=== PATIENT | female | born 1975 | race Caucasian/White ===

== ENCOUNTER 2017-08-27 16:12 | Emergency (ER) | payer MEDICAID, OTHER ==
[~2017-08-27] VITALS: Ht 165.1 cm; Wt 45.4 kg
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
--- OUTSIDE RECORDS SUMMARY | 2017-08-27 16:18 | XMS REPORT | Summary of Care ---
Author Author Rosie Sewell APRN Organization Unknown Address [address] [place], [place] [id number] Phone Unavailable Care Team Providers Care Special Education Inclusion Teacher Name Role Phone Outside, Physician PP Unavailable [facility], Dipika VILLAGOMEZ Unavailable Unavailable Unavailable Functional Status Functional Status Health Issues* Name Dates Details Functional status health issues are not documented Status: Cognitive Status Health Issues* Name Dates Details Cognitive status health issues are not documented Status: Problems Name Dates Details Encounter related to worker's compensation claim (V70.3, Z02.6) Status: Active Back strain (847.9, S39.012A) Status: Active Impacted cerumen of left ear (380.4, H61.22) Status: Active Medications Name Dates Details Multi-Vitamin Oral Tablet * Started 29-Aug-2012 Active Allergies and Adverse Reactions Name Dates Details No Known Drug Allergies Status: Active Past Medical History Name Dates Details History of Encounter for employment-related drug testing (V70.5, Z02.89) Status: Resolved History of low back pain (V13.59, Z87.39) Status: Resolved Procedures Procedure Dates Details Procedures not documented Immunization Name Dates Details Immunizations not documented Social History Smoking Status* Unknown if ever smoked Vital Signs Date Test Result Details 18-May-2015 14:46 Temperature 98.4 f Status: Results Date Description Value Details Results not documented Plan of Care Planned Observations* Name Dates Details Planned Goals not documented Goal Instructions * Instructions not documented Encounters Appointment; Rosie Sewell Encounter Diagnosis: Problem not documented On 18-May-2015 14:15 Appointment; Danny Gauthier Encounter Diagnosis: Problem not documented On 16-Mar-2014 15:30 Appointment; Danny Gauthier Encounter Diagnosis: Problem not documented On 09:15 Appointment; Danny Gauthier Encounter Diagnosis: Problem not documented On 10-Dec-2013 11:00 Appointment; Danny Gauthier Encounter Diagnosis: Problem not documented On 23-Nov-2013 15:15
--- OUTSIDE RECORDS SUMMARY | 2017-08-27 16:18 | XMS REPORT ---
Author Author GENERATED, SYSTEM Organization Unknown Address Unknown Phone Unavailable Care Team Providers Care Evp Global Product Leadership Name Role Phone UNASSIGNED DOCTOR , DOCTOR PP Reason For Visit Chief Complaint CHEST PAINS, SOB Social History Functional Status Vital Signs Results Chemistry from 01/03/2015 11:33 PMSODIUM 138 MMOL/L (136-145 MMOL/L) POTASSIUM 3.9 MMOL/L (3.5-5.1 MMOL/L) CHLORIDE 101 MMOL/L (98-107 MMOL/L) TCO2 29.5 MMOL/L (21.0-32.0 MMOL/L) ANION GAP 7.5 MMOL/L L (8.0-16.0 MMOL/L) BUN 10 MG/DL (7-18 MG/DL) CREATININE 0.67 MG/DL (0.43-0.83 MG/DL) BUN/CREATININE RATIO 14.9 (9.1-17.0 ) GLUCOSE 99 MG/DL (65-99 MG/DL) GFR EST NON AFR LITHUANIAN >90 ML/MIN GFRA EST AFR AMER >90 ML/MIN CALCIUM 9.8 MG/DL (8.5-10.1 MG/DL) TROPONIN-I <0.04 (SEE BELOW ) Hematology from 01/03/2015 11:33 PMWBC 8.2 X10e3/UL (3.6-11.2 X10e3/UL) RBC 4.33 X10e6/UL (3.63-4.92 X10e6/UL) HEMOGLOBIN 14.3 G/DL (11.0-14.3 G/DL) HEMATOCRIT 41.7 % (31.2-41.9 %) MCV 96.3 FL (79.0-98.0 FL) MCH 33.0 PG (27.0-33.0 PG) MCHC 34.3 G/DL (32.0-36.0 G/DL) RDW 12.5 % (12.3-17.0 %) RDWSD 41.6 (37.1-47.8 ) PLATELET 203 X10e3/UL (159-386 X10e3/UL) MPV 8.1 FL (7.4-10.4 FL) AUTOMATED DIFF PERFORMED SEGS 62.3 % LYMPHOCYTES 26.9 % MONOCYTES 5.8 % EOSINOPHILS 4.5 % BASOPHILS 0.5 % ABSOLUTE NEUTROPHILS 5.10 X10e3/UL (1.80-7.80 X10e3/UL) ABSOLUTE LYMPHOCYTES 2.20 X10e3/UL (1.00-3.00 X10e3/UL) ABSOLUTE MONOCYTES 0.50 X10e3/UL (0.30-1.00 X10e3/UL) ABSOLUTE EOSINOPHILS 0.40 X10e3/UL (0.00-0.50 X10e3/UL) ABSOLUTE BASOPHILS 0.00 X10e3/UL (0.00-0.20 X10e3/UL) Coagulation from 01/03/2015 11:33 PMD-DIMER 0.70 MG/L FEU H (0.00-0.50 MG/L FEU) DX Radiology from 01/03/2015 11:25 PMCHEST 1 VIEW DATE OF EXAM: Jan 04 2015 12: 02AM Proc: DG 0066 - CHEST 1 VIEW CPT Code(s): 61062-; ; ; INDICATION / CLINICAL HISTORY: \E\Chest Pain FINDINGS: A single view of the chest was obtained. The heart size and pulmonary vasculature appear within normal limits. There is no evidence of pneumothorax, pleural effusion, or acute infiltrate. The osseous structures appear intact. IMPRESSION: Unremarkable chest radiograph. Problems Encounter Diagnosis No relevant problems exist. Encounters Encounter Diagnosis No relevant problems exist. Plan of Care Procedures No relevant procedures performed. Immunizations No immunizations administered or ordered. Hospital Course Hospital Discharge Instructions Allergies, Adverse Reactions, Alerts * Latex Allergy has not been assessed. * IV Contrast Allergy has not been assessed. Medication Medication reconciliation has not been performed.
--- OUTSIDE RECORDS SUMMARY | 2017-08-27 16:18 | XMS REPORT ---
Author Author GENERATED, SYSTEM Organization Unknown Address Unknown Phone Unavailable Care Team Providers Care Media Specialist Name Role Phone UNASSIGNED DOCTOR , DOCTOR PP Reason For Visit Chief Complaint SYNCOPE/ FAINTING Social History Functional Status Vital Signs Results Problems Encounter Diagnosis No relevant problems exist. [...]
--- OUTSIDE RECORDS SUMMARY | 2017-08-27 16:18 | XMS REPORT ---
Author Author GENERATED, SYSTEM Organization Unknown Address Unknown Phone Unavailable Care Team Providers Care Pick Remover Name Role Phone UNASSIGNED DOCTOR , DOCTOR PP Reason For Visit Chief Complaint LIGHTHEADED Social History Functional Status Vital Signs Results Chemistry from 05/14/2015 6:00 PMSODIUM 142 MMOL/L (136-145 MMOL/L) POTASSIUM 4.0 MMOL/L (3.5-5.1 MMOL/L) CHLORIDE 106 MMOL/L (98-107 MMOL/L) TCO2 25.0 MMOL/L (21.0-32.0 MMOL/L) *ANION GAP 11.0 MMOL/L (8.0-16.0 MMOL/L) BUN 14 MG/DL (7-18 MG/DL) CREATININE 1.06 MG/DL H (0.55-1.02 MG/DL) *BUN/CREATININE RATIO 13.2 (9.1-17.0 ) GLUCOSE 96 MG/DL (65-99 MG/DL) *GFR EST NON AFR EMIRATI 66 ML/MIN *GFRA EST AFR AMER 76 ML/MIN CALCIUM 8.8 MG/DL (8.5-10.1 MG/DL) BILIRUBIN TOTAL 0.56 MG/DL (0.20-1.00 MG/DL) TOTAL PROTEIN 7.2 GM/DL (6.4-8.2 GM/DL) ALBUMIN 4.2 GM/DL (3.4-5.0 GM/DL) *GLOBULIN 3.0 GM/DL (2.3-3.5 GM/DL) *A/G RATIO 1.4 MG/DL L (1.5-2.2 MG/DL) ALK PHOS 62 U/L (46-116 U/L) ALT (SGPT) 19 U/L (16-63 U/L) AST (SGOT) 18 U/L (15-37 U/L) TSH 1.30 UIU/ML (0.34-4.82 UIU/ML) Hematology from 05/14/2015 6:00 PMWBC 9.4 X10e3/UL (3.6-11.2 X10e3/UL) RBC 4.37 X10e6/UL (3.63-4.92 X10e6/UL) HEMOGLOBIN 14.0 G/DL (11.0-14.3 G/DL) HEMATOCRIT 41.8 % (31.2-41.9 %) MCV 95.8 FL (79.0-98.0 FL) MCH 32.2 PG (27.0-33.0 PG) MCHC 33.6 G/DL (32.0-36.0 G/DL) RDW 12.2 % L (12.3-17.0 %) RDWSD 40.7 (37.1-47.8 ) PLATELET 227 X10e3/UL (159-386 X10e3/UL) MPV 8.2 FL (7.4-10.4 FL) AUTOMATED DIFF PERFORMED SEGS 79.4 % LYMPHOCYTES 12.3 % MONOCYTES 6.1 % EOSINOPHILS 1.9 % BASOPHILS 0.3 % ABSOLUTE NEUTROPHILS 7.50 X10e3/UL (1.80-7.80 X10e3/UL) ABSOLUTE LYMPHOCYTES 1.20 X10e3/UL (1.00-3.00 X10e3/UL) ABSOLUTE MONOCYTES 0.60 X10e3/UL (0.30-1.00 X10e3/UL) ABSOLUTE EOSINOPHILS 0.20 X10e3/UL (0.00-0.50 X10e3/UL) ABSOLUTE BASOPHILS 0.00 X10e3/UL (0.00-0.20 X10e3/UL) Urinalysis from 05/14/2015 6:35 PM*URINE COLOR YELLOW (STRAW/YELL/DK YELL ) *URINE APPEARANCE CLEAR (CLEAR ) URINE PH 7.0 (5.0-8.0 ) URINE SPECIFIC GRAVITY 1.015 (<=1.005->=1.030 ) *URINE GLUCOSE (LAB) NEGATIVE MG/DL (NEGATIVE MG/DL) *URINE BILIRUBIN NEGATIVE (NEGATIVE ) *URINE KETONES TRACE MG/DL A (NEGATIVE MG/DL) *URINE BLOOD NEGATIVE (NEGATIVE ) *URINE PROTEIN NEGATIVE MG/DL (NEGATIVE MG/DL) *URINE UROBILINOGEN 0.2 EU/DL (0.2-1.0 EU/DL) *URINE NITRITES (LAB) NEGATIVE (NEGATIVE ) *URINE LEUKOCYTES NEGATIVE (NEGATIVE ) UR NEGATIVE (NEGATIVE ) Coagulation from 05/14/2015 6:00 PM*PROTHROMBIN TIME 10.6 SECONDS (9.4-11.5 SECONDS) *INR 1.0 (0.9-1.1 ) PARTIAL THROMBOPLASTIN TIME 23.5 SECONDS (23.0-31.0 SECONDS) CT Scan from 05/14/2015 7:24 PMCT CEREBRAL W/O CONTRAST History: Dizziness . Priors: None. Findings: Ventricles and Extra axial spaces: Normal in size and morphology for the patient's age. Hemorrhage: None. Cerebral parenchyma: Normal. No acute infarcts are identified. Mass effect/midline shift: None. Brainstem/Cerebellum: Normal. Calvarium: There postsurgical change of a left temporal craniectomy of with small associated area of encephalomalacia in the left temporal lobe laterally. Visualized Paranasal sinuses/Mastoids: Clear. Impression: No evidence acute intracranial process. Postsurgical changes described above. Electronically signed by: Tyrone Gan MD Dictated: 05/15/2015 10:11 Problems Encounter Diagnosis No relevant problems exist. [...]
--- OUTSIDE RECORDS SUMMARY | 2017-08-27 16:18 | XMS REPORT | Summary of Care ---
Author Author Trevon Almeida M.D. Organization Unknown Address [address] [place], [place] [address] Phone Unavailable Care Team Providers Care Boat Fueler Name Role Phone Trevon Almeida M.D. 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 Quantity: 30 ThodeJordy M.D.* Started 19-Aug-2015 ActiveEszopiclone 3 MG Oral Tablet TAKE 1 TABLET AT BEDTIME NEEDED FOR SLEEP. * Quantity: 15 Refills: 0 ThodeJordy M.D.* Started 02-Sep-2015 Active Allergies and Adverse Reactions Name Dates Details No Known Drug Allergies Status: Active Past Medical History Name Dates Details Depression (311, F32.9) Status: Active History of Ankle fracture, right (824.8, S82.891A) [...] Immunization Name Dates Details Immunizations not documented Family History Mother* Name Dates Details Family history of cerebral aneurysm (V17.1, Z82.49) Status: Active Father* Name Dates Details Family history of Known health problems: none (V49.89, Z78.9) Status: Active Social History Smoking Status* Unknown if ever smoked Vital Signs Date Test Result Details 02-Sep-2015 15:21 BP Systolic 104 mm[Hg] Status: BP Diastolic 67 mm[Hg] Status: Temperature 98.1 f Status: Heart Rate 103 /min Status: O2 SAT 97 % Status: 19-Aug-2015 13:05 BP Systolic 108 mm[Hg] Status: BP Diastolic 62 mm[Hg] Status: Temperature 97.9 f Status: Heart Rate 92 /min Status: O2 SAT 98 % Status: Results Date Description Value Details Results not documented Plan of Care Planned Observations* Name Dates Details Planned Goals not documented Goal Instructions * Instructions not documented Encounters Appointment; Jordy Almeida Encounter Diagnosis: Problem not documented On 02-Sep-2015 15:00 Appointment; Andrew Schwartz Encounter Diagnosis: Problem not documented On 01-Sep-2015 08:15 Appointment; Jordy Almeida Encounter Diagnosis: Problem not documented On 19-Aug-2015 13:00 Appointment; Rosie Sewell Encounter Diagnosis: Problem not documented On 07-Jun-2015 15:20 Appointment; Rosie Sewell Encounter Diagnosis: Problem not documented On 18-May-2015 14:15 Appointment; Danny Gauthier Encounter Diagnosis: Problem not documented On 16-Mar-2014 15:30 Appointment; Danny Gauthier Encounter Diagnosis: Problem not documented On 09:15 Appointment; Danny Gauthier Encounter Diagnosis: Problem not documented On 10-Dec-2013 11:00 Appointment; Danny Gauthier Encounter Diagnosis: Problem not documented On 23-Nov-2013 15:15
--- OUTSIDE RECORDS SUMMARY | 2017-08-27 16:18 | XMS REPORT | Summary of Care ---
Author Author Anthony Esposito D.O. Organization Unknown Address [address], [place] [address] Phone Unavailable Care Team Providers Care Estate And Trust Tax Principal Name Role Phone Anthony Esposito D.O. Unavailable Unavailable Wes Esposito PP Unavailable [facility] Dipika Castro RP [...] for screening mammogram (V76.12, Z12.31) Status: Active Depression (311, F32.9) Status: Active Insomnia (780.52, G47.00) Status: Active Medications Name Dates Details PARoxetine HCl - 20 MG Oral Tablet ONE TABLET BY MOUTH DAILY Quantity: 90 Anthony Esposito D.O.* Started 19-Aug-2015 ActiveEszopiclone 3 MG Oral Tablet TAKE 1 TABLET AT BEDTIME NEEDED FOR SLEEP. * Quantity: 30 Refills: 2 Anthony Esposito D.O.* Started 02-Sep-2015 ActiveBenadryl 25 MG Oral Tablet TAKE 6 TABLET Bedtime * Refills: 0 Anthony Esposito D.O.* Started 16-Sep-2015 Active Allergies and Adverse Reactions Name Dates [...] History of Elevation Of Depressed Skull Fracture Blood Type 2126 (ABO and Rh) Ordered:16-Sep-2015 Immunization Name Dates Details Immunizations not documented Family History Mother* Name Dates Details Family history of cerebral aneurysm (V17.1, Z82.49) Status: Active Father* Name Dates Details Family history of Known health problems: none (V49.89, Z78.9) Status: Active Social History Name Dates Details Smoking Status* Never smoker Vital Signs Date Test Result Details 12-Oct-2015 14:46 BP Systolic 118 mm[Hg] Status: BP Diastolic 64 mm[Hg] Status: Heart Rate 68 /min Status: Weight 116 lb Status: Body Mass Index Calculated 19.91 kg/m2 Status: Body Surface Area Calculated 1.55 m2 Status: 16-Sep-2015 14:57 BP Systolic 104 mm[Hg] Status: BP Diastolic 60 mm[Hg] Status: Heart Rate 80 /min Status: Height 64 in Status: Weight 118.125 lb Status: Body Mass Index Calculated 20.28 kg/m2 Status: Body Surface Area Calculated 1.56 m2 Status: Results Date Description Value Details 23-Sep-2015 12:59 MAMMOGRAM- IMPLANTS Comments: Exam Date: 09/23/2015 11 :21Dictation Date: 09/23/2015 12:59 X[facility] IMPLANTS [facility]ULT[facility] Radiologic ReportGUNNAR [id number]-[id number] (X-RAY)PATIENT OF DR. ESPOSITO BD: 1975 SECONDARY XM DIGITAL IMPLANTS XM DIGITAL CAD (SCREENING) INDICATION: Z12.31: (Better) 12-Oct-2015 13:35 Comprehensive Metabolic Panel 1212 Comments: Fastin hours SODIUM 139 mmol/L (Better) Range: 133-144 POTASSIUM 4.2 mmol/L (Better) Range: 3.5-5.1 CHLORIDE 102 mmol/L (Better) Range: 98-110 CARBON DIOXIDE 30.9 mmol/L (Better) Range: 23.0-33.0 ANION GAP 6 mmol/L (Better) Range: 6-16 BUN 14 mg/dL (Better) Range: 7-18 CREATININE, SERUM 0.93 mg/dL (Better) Range: 0.55-1.02 Comments: Please note new reference ranges effective 2015.----- BUN:CREATININE RATIO 15 (Better) EST GFR, >60 ml/min (Better) Range: >60 EST GFR, NON-AFR LATVIAN >60 ml/min (Better) Range: >60 Comments: EST GFR is reported in ml/min per 1.73 m2 of body surface area. For -[place], please multiple result by 1.2.----- GLUCOSE 89 mg/dL (Better) Range: 70-100 ALK PHOSPHATASE 62 U/L (Better) Range: 46-116 TOTAL BILIRUBIN 0.20 mg/dL (Better) Range: 0.20-1.00 AST 18 U/L (Better) Range: 8-35 ALT 21 U/L (Better) Range: 14-59 Comments: Please note new reference ranges. Effective 10/21/2014.----- ALBUMIN 4.1 g/dL (Better) Range: 3.4-5.0 TOTAL PROTEIN 7.4 g/dL (Better) Range: 6.4-8.2 A/G RATIO 1.2 units (Better) Range: 1.0-1.8 CALCIUM 8.6 mg/dL (Better) Range: 8.5-10.1 13:35 LIPID PROFILE 1184 Comments: Fastin hours CHOLESTEROL 198 mg/dL (Better) Range: <200 TRIGLYCERIDES 85 mg/dL (Better) Range: 30-200 HDL Cholesterol 53 mg/dL (Better) Range: >39 NON HDL CHOLESTEROL 145 (Better) CARDIAC RSK FACTOR 3.7 units (Below low threshold) Range: 4.4-5.0 LDL - CALCULATED 128 mg/dL (Better) Range: 0-130 Plan of Care Planned Observations* Name Dates Details Planned Goals not documented Goal Planned Encounters* Appointment; Provider: Schedule Radiology On 23-Sep-2015 11:30 Instructions * Instructions not documented Encounters Appointment; Anthony Esposito Encounter Diagnosis: Problem not documented On 12-Oct-2015 14:45 Appointment; Anthony Esposito Encounter Diagnosis: Problem not documented On 16-Sep-2015 14:30 Appointment; Jordy Almeida Encounter Diagnosis: Problem not [...]
--- OUTSIDE RECORDS SUMMARY | 2017-08-27 16:18 | XMS REPORT | Summary of Care ---
Author Author Trevon Almeida M.D. Organization Unknown Address [address], [place] [id number] Phone Unavailable Care Team Providers Care Distillation Operator Helper Name Role Phone Trevon Almeida M.D. Unavailable Unavailable No Assigned PCP-Pt Confirmed PP Unavailable [facility], Dipika RP Unavailable Unavailable Unavailable Functional Status Functional [...] Status: Active Depression (311, F32.9) Status: Active Medications Name Dates Details PARoxetine HCl - 10 MG Oral Tablet TAKE 1 TABLET DAILY DIRECTED. Quantity: 30 ThodeJordy M.D.* Started 19-Aug-2015 ActiveALPRAZolam 0.5 MG Oral Tablet TAKE 1 TABLET EVERY 6 TO 8 HOURS NEEDED. * Quantity: 30 Refills: 0 ThodeJordy M.D.* Started 19-Aug-2015 Ended 27-Aug-2015 Active Allergies and Adverse Reactions Name Dates Details No Known Drug Allergies Status: Active Past Medical History Name Dates Details History of Encounter for employment-related drug testing (V70.5, Z02.83) Status: Resolved History of low back pain (V13.59, Z87.39) Status: Resolved Procedures Procedure Dates Details Procedures not documented Immunization Name Dates Details Immunizations not documented Social History Smoking Status* Unknown if ever smoked Vital Signs Date Test Result Details 19-Aug-2015 13:05 BP Systolic 108 mm[Hg] Status: BP Diastolic 62 mm[Hg] Status: Temperature 97.9 f Status: Heart Rate 92 /min Status: O2 SAT 98 % Status: Results Date Description Value Details Results not documented Plan of Care Planned Observations* Name Dates Details Planned Goals not documented Goal Planned Encounters* Appointment; Provider: Andrew Schwartz On 01-Sep-2015 08:15 Instructions * Instructions not documented Encounters Appointment; [...]
--- OUTSIDE RECORDS SUMMARY | 2017-08-27 16:18 | XMS REPORT | Summary of Care ---
Author Author Anthony Hamlin D.O. Organization Unknown Address [address], [place] [id number] Phone Unavailable Care Team Providers Care Drug Abuse Resistance Education Officer Name Role Phone Anthony Hamlin D.O. Unavailable Unavailable Wes Hamlin PP Unavailable [facility] Dipika Castro [...] TABLET BY MOUTH DAILY Quantity: 90 Anthony Hamlin D.O.* Started 19-Aug-2015 ActiveEszopiclone 3 MG Oral Tablet TAKE 1 TABLET AT BEDTIME NEEDED FOR SLEEP. * Quantity: 30 Refills: 2 Anthony Hamlin D.O.* Started 02-Sep-2015 ActiveBenadryl 25 MG Oral Tablet TAKE 6 TABLET Bedtime * Refills: 0 Anthony Hamlin D.O.* Started 16-Sep-2015 Active Allergies and Adverse [...] History of Elevation Of Depressed Skull Fracture Comprehensive Metabolic Panel 1212 Ordered:16-Sep-2015 LIPID PROFILE 1184 Ordered:16-Sep-2015 Blood Type 2126 (ABO and Rh) Ordered:16-Sep-2015 MAMMOGRAM-SCREENING Ordered:16-Sep-2015 Immunization Name Dates Details Immunizations not documented Family History Mother* Name Dates Details Family history of cerebral aneurysm (V17.1, Z82.49) Status: Active Father* Name Dates Details Family history of Known health problems: none (V49.89, Z78.9) Status: Active Social History Name Dates Details Smoking Status* Never smoker Vital Signs Date Test Result Details 16-Sep-2015 14:57 BP Systolic 104 mm[Hg] Status: BP Diastolic 60 mm[Hg] Status: Heart Rate 80 /min Status: Height 64 in Status: Weight 118.125 lb Status: Body Mass Index Calculated 20.28 kg/m2 Status: Body Surface Area Calculated 1.56 m2 Status: 02-Sep-2015 15:21 BP Systolic 104 mm[Hg] Status: BP Diastolic 67 mm[Hg] Status: Temperature 98.1 f Status: Heart Rate 103 /min Status: O2 SAT 97 % Status: Results Date Description Value Details Results not documented Plan of Care Planned Observations* Name Dates Details Planned Goals not documented Goal Planned Encounters* Appointment; Provider: Anthony Hamlin On 07-Oct-2015 14:45 Instructions * Instructions not documented Encounters Appointment; Anthony Hamlin Encounter Diagnosis: Problem not documented On 16-Sep-2015 [...]
--- OUTSIDE RECORDS SUMMARY | 2017-08-27 16:19 | XMS REPORT | Summary of Care ---
Author Author Anthony Esposito D.O. Organization Unknown Address [address], [place] [id number] Phone Unavailable Care Team Providers Care Rv Detailer Name Role Phone Anthony Esposito D.O. Unavailable [...] periodic health examination (V70.0, Z00.00) Status: Active Depression (311, F32.9) Status: Active Insomnia (780.52, G47.00) Status: Active Medications Name Dates Details PARoxetine HCl - 20 MG Oral Tablet ONE TABLET BY MOUTH DAILY Quantity: 90 Anthony Esposito D.O.* Started 19-Aug-2015 ActiveEszopiclone 3 MG Oral Tablet TAKE 1 TABLET AT BEDTIME NEEDED FOR SLEEP. * Quantity: 90 Refills: 1 Anthony Esposito D.O.* Started 02-Sep-2015 ActiveBenadryl 25 MG Oral Tablet TAKE 6 TABLET Bedtime * Refills: 0 Anthony Esposito.O.* Started 16-Sep-2015 Active Allergies and Adverse Reactions [...] :21Dictation Date: 09/23/2015 12:59 [facility] Radiologic ReportGUNNAR GOODWIN-[id number] (X-RAY)PATIENT OF DR. ESPOSITO BD: 1975 SECONDARY [...] ml/min (Better) Range: >60 EST GFR, NON-AFR MALAWIAN >60 ml/min (Better) Range: >60 Comments: EST GFR is reported in ml/min per 1.73 m2 of body surface area. For -Finnish, please multiple result by 1.2.----- GLUCOSE 89 [...] - CALCULATED 128 mg/dL (Better) Range: 0-130 15:11 Blood Type 2126 (ABO and Rh) Comments: Fastin hours ABO A (Better) RH FACTOR Negative (Better) Plan of Care Planned Observations* Name Dates Details Planned Goals not documented Goal Planned Encounters* Appointment; Provider: Anthony Esposito On 13-Apr-2016 13:00 * Appointment; Provider: [facility] On 23-Sep-2015 11:30 Instructions * Instructions [...] not documented On 10-Dec-2013 11:00 Appointment; Danny Gatuhier Encounter Diagnosis: Problem not documented On 23-Nov-2013 15:15
--- OUTSIDE RECORDS SUMMARY | 2017-08-27 16:19 | XMS REPORT | Summary of Care ---
Author Author Rosie Sewell APRN Organization Unknown Address [address] [place], [place] [id number] Phone Unavailable Care Team Providers Care Instructional Writer Name Role Phone Rosie Sewell APRN Unavailable Unavailable Outside, Physician PP Unavailable [facility], [...] Active Allergic rhinitis (477.9, J30.9) Status: Active Medications Name Dates Details Fluticasone Propionate 50 MCG/ACT Nasal Suspension USE 1 TO 2 SPRAYS IN EACH NOSTRIL ONCE DAILY. Quantity: 1 RashawnprakashRosie APRN* Started 07-Jun-2015 [id number] GM Bottle PredniSONE 20 MG Oral Tablet TAKE 3 TABLETS DAILY FOR 3 DAYS, THEN 2 TABLETS DAILY FOR 3 DAYS, THEN 1 TABLET DAILY FOR 3 DAYS. * Quantity: 18 Refills: 0 Rosie Sewell APRN* Started 07-Jun-2015 Active Allergies and Adverse Reactions Name Dates [...] smoked Vital Signs Date Test Result Details 07-Jun-2015 15:32 BP Systolic 110 mm[Hg] Status: BP Diastolic 58 mm[Hg] Status: Temperature 97.9 f Status: Heart Rate 98 /min Status: Weight 119 lb Status: O2 SAT 98 % Status: 18-May-2015 14:46 Temperature 98.4 f Status: Results [...] Diagnosis: Problem not documented On 09:15 Appointment; Danyn Gauthier Encounter Diagnosis: Problem not documented On 10-Dec-2013 11:00 Appointment; Danny Gauthier Encounter Diagnosis: Problem not documented On 23-Nov-2013 15:15
--- OUTSIDE RECORDS SUMMARY | 2017-08-27 16:19 | XMS REPORT | Summary of Care ---
Author Author Trevon Almeida M.D. Organization Unknown Address [address], [place] [id number] Phone Unavailable Care Team Providers Care Pace Analyst Name Role Phone Trevon Almeida M.D. Unavailable Unavailable No Assigned PCP-Pt Confirmed PP Unavailable [facility], Dipika VILLAGOMEZ [...] Status: Active Blepharospasm (333.81, G24.5) Status: Active Medications Name Dates Details PARoxetine HCl - 10 MG Oral Tablet TAKE 1 TABLET DAILY DIRECTED. Quantity: 30 ThJordy day M.D.* Started 19-Aug-2015 ActiveALPRAZolam 0.5 MG Oral [...]
--- OUTSIDE RECORDS SUMMARY | 2017-08-27 16:19 | XMS REPORT | Summary of Care ---
Author Author Anthony Hamlin D.O. Organization Unknown Address [address], [place] [id number] Phone Unavailable Care Team Providers Care Battery Technician Name Role Phone Anthony Hamlin D.O. Unavailable Unavailable Anthony Hamlin PP Unavailable [facility] [...] TABLETS TOEQUAL 30 MG DAILY Quantity: 30 Anthony Hamlin D.O.* Started 09-Dec-2015 ActivePARoxetine HCl - 20 MG Oral Tablet ONE TABLET BY MOUTH DAILY * Quantity: 30 Refills: 1 Anthony Hamlin.O.* Started 09-Dec-2015 ActiveBuPROPion HCl ER (SR) 100 MG Oral Tablet Extended Release 12 Hour TAKE 1 TABLET TWICE DAILY. * Quantity: 60 Refills: 0 Anthony Hamlin D.O.* Started Active Allergies and Adverse Reactions Name Dates [...] Name Dates Details Diphtheria-Tetanus Toxoids 6.7-5 LFU/0.5ML Intramuscular Injectable Administered on:Oct-2015 Tdap (Adacel) Lot #: [id number] Administered on:13-Oct-2015 Family History Mother* Name Dates Details Family history of cerebral aneurysm (V17.1, Z82.49) Status: Active Father* Name Dates Details Family history of Known health problems: none (V49.89, Z78.9) Status: Active Social History Name Dates Details Smoking Status* Never smoker Vital Signs Date Test Result Details 15:32 BP Systolic 108 mm[Hg] Status: BP Diastolic 72 mm[Hg] Status: Weight 116 lb Status: O2 SAT 98 % Status: Body Mass Index Calculated 19.91 kg/m2 Status: Body Surface Area Calculated 1.55 m2 Status: Results Date Description Value Details Results not documented Plan of Care Planned Observations* Name Dates Details Planned Goals not documented Goal Planned Encounters* Appointment; Provider: Anthony Hamlin On 13-Apr-2016 13:00 * Appointment; Provider: Anthony Hamlin On 29-Mar-2016 13:30 * Appointment; Provider: Schedule Radiology On 23-Sep-2015 11:30 Instructions * Instructions not documented Encounters Appointment; Anthony Hamlin Encounter Diagnosis: Problem not documented On 15:00 Appointment; Anthony Hamlin Encounter Diagnosis: Problem not documented On 09-Dec-2015 13:45 Appointment; Anthony Hamlin Encounter Diagnosis: Problem not documented On 12-Oct-2015 14:45 Appointment; Anthony Hamlin Encounter Diagnosis: Problem not [...]
--- OUTSIDE RECORDS SUMMARY | 2017-08-27 16:19 | XMS REPORT | Continuity of Care Document ---
Author Author [facility] Address Unknown Phone Unavailable Allergies There is no data. Medications There is no data. Problems Date Dx Coded Attending Type Code Diagnosis Diagnosed By 12/19/2011 TERRY ENGLE DO 625.0 DYSPAREUNIA 12/19/2011 TERRY ENGLE DO V25.09 CONTRACEPTIVE COUNSELING - GENERAL 12/19/2011 TERRY ENGLE DO V74.5 STD SCREEN 12/19/2011 TERRY ENGLE DO V76.2 CERVICAL CANCER SCREENING (PAP SMEAR) 02/05/2012 TERRY ENGLE DO 795.03 Pap Smear (+) Low Grade Squamous Intraepithelial Lesion 02/05/2012 TERRY ENGLE DO V25.02 Contraceptives 05/20/2015 FRANCISCO CORDERO H6122 Impacted cerumen, left ear 05/20/2015 FRANCISCO CORDERO J0190 Acute sinusitis, unspecified 05/20/2015 FRANCISCO CORDERO R42 Dizziness and giddiness Procedures There is no data. Results There is no data. Encounters ACCT No. Visit Date/Time Discharge Status Pt. Type Provider Facility Loc./Unit Complaint [id number] 02/05/2012 09:26:00 02/05/2012 23:59:59 CLS Outpatient TERRY ENGLE DO [id number] 05/14/2015 16:28:00 05/17/2015 03:30:01 DIS Outpatient UNASSIGNED DOCTOR, DOCTOR [id number] 05/14/2015 17:00:00 05/15/2015 05:12:54 DIS Emergency FRANCISCO CORDERO
--- OUTSIDE RECORDS SUMMARY | 2017-08-27 16:19 | XMS REPORT | Summary of Care ---
Author Author Anthony Hamlin D.O. Organization Unknown Address [address], [place] [id number] Phone Unavailable Care Team Providers Care Psychological Science Professor Name Role Phone Anthony Hamlin D.O. Unavailable [...] of left ear (380.4, H61.22) Status: Active Visit for screening mammogram (V76.12, Z12.31) Status: Active Visit for periodic health examination (V70.0, Z00.00) Status: Active Insomnia (780.52, G47.00) Status: Active Depression with anxiety (300.4, F41.8) Status: Active Blepharospasm (333.81, G24.5) Status: Active Allergic rhinitis (477.9, J30.9) Status: Active Medications Name Dates Details Benadryl 25 MG Oral Tablet TAKE 6 TABLET Bedtime Anthony Hamlin D.O.* Started 16-Sep-2015 ActiveLORazepam 0.5 MG Oral Tablet TAKE 1 TABLET DAILY NEEDED FOR BREAKTHROUGH ANXIETY ATTACK ONLY * Quantity: 10 Refills: 0 Anthony Hamlin.O.* Started 09-Dec-2015 ActivePARoxetine HCl - 10 MG Oral Tablet TAKE 1 TABLET DAILY WITH 20MG TABLETS TO EQUAL 30MG DAILY * Quantity: 30 Refills: 0 Anthony Hamlin.O.* Started 09-Dec-2015 ActivePARoxetine HCl - 20 MG Oral Tablet ONE TABLET BY MOUTH DAILY * Quantity: 30 Refills: 1 Anthony Hamlin.O.* Started 09-Dec-2015 Active Allergies and Adverse Reactions Name Dates [...] Resolved Procedures Procedure Dates Details History of Elevation Of Depressed Skull Fracture History of Diagnostic Esophagogastroduodenoscopy History of Open Treatment Of Bimalleolar Ankle Fracture History of Open Treatment Humeral Shaft Fracture With Implant Procedures not documented Immunization Name Dates Details Diphtheria-Tetanus Toxoids 6.7-5 LFU/0.5ML Intramuscular Injectable Administered on:Oct-2015 Tdap (Adacel) Lot #: [id number] Administered on:13-Oct-2015 Family History Mother* Name Dates Details Family history of cerebral aneurysm (V17.1, Z82.49) Status: Active Father* Name Dates Details Family history of Known health problems: none (V49.89, Z78.9) Status: Active Social History Name Dates Details Smoking Status* Never smoker Vital Signs Date Test Result Details 09-Dec-2015 13:59 BP Systolic 110 mm[Hg] Status: BP Diastolic 64 mm[Hg] Status: Heart Rate 97 /min Status: Weight 119 lb Status: Body Mass Index Calculated 20.43 kg/m2 Status: Body Surface Area Calculated 1.57 m2 Status: Results Date Description Value Details Results not documented Plan of Care Planned Observations* Name Dates Details Planned Goals not documented Goal Planned Encounters* Appointment; Provider: Anthony Hamlin On 13-Apr-2016 13:00 * Appointment; Provider: Schedule Radiology On 23-Sep-2015 [...]
--- OUTSIDE RECORDS SUMMARY | 2017-08-27 16:19 | XMS REPORT | Summary of Care ---
Author Author Anthony Esposito D.O. Organization Unknown Address [address], [place] [id number] Phone Unavailable Care Team Providers Care Manager Orange Name Role Phone Anthony Esposito D.O. Unavailable [...] :21Dictation Date: 09/23/2015 12:59 XM IMPLANTS [facility] Radiologic ReportGUNNAR GOODWIN [id number] (X-RAY)PATIENT OF DR. ESPOSITO BD: 1975 SECONDARY XM DIGITAL IMPLANTS XM DIGITAL CAD (SCREENING) INDICATION: Z12.31: (Better) Plan of Care Planned Observations* Name Dates Details Planned Goals not documented Goal Planned Encounters* Appointment; Provider: Anthony Esposito On 12-Oct-2015 14:45 * Appointment; Provider: Schedule Radiology On 23-Sep-2015 [...]
[2017-08-27] MEDS ORDERED: FLUO20CA42 PO (17:04)
[2017-08-27] MEDS ORDERED: KETOROLAC 30 MG/ML VIAL IVP STA (17:48)
[2017-08-27] MEDS ORDERED: cefTRIAXone 1 GM (ROCEPHIN) VIAL IV STA (17:48)
[2017-08-27] MEDS ORDERED: ACETAMINOPHEN 500 MG TAB (TYLENOL) PO PRN (18:00)
[2017-08-27] MEDS ORDERED: NS IV PRN (18:00)
[2017-08-27 18:13] LABS: BASOPHILS % (AUTO) 0 % (0-10); EOSINOPHILS % (AUTO) 1 % (0-10); HEMATOCRIT 41 % (35-52); HEMOGLOBIN 14.2 G/DL (11.5-16.0); LYMPHOCYTES # (AUTO) 0.7 X 10^3 (1.0-4.0); LYMPHOCYTES % (AUTO) 17 % (12-44); MEAN CORPUSCULAR HEMOGLOBIN 32 PG (25-34); MEAN CORPUSCULAR HGB CONC 35 G/DL (32-36); MEAN CORPUSCULAR VOLUME 93 FL (80-99); MEAN PLATELET VOLUME 9.5 FL (7.4-10.4); MONOCYTES # (AUTO) 0.7 X 10^3 (0.0-1.0); MONOCYTES % (AUTO) 17 % (0-12); NEUTROPHILS # (AUTO) 2.5 X 10^3 (1.8-7.8); NEUTROPHILS % (AUTO) 65 % (42-75); PLATELET COUNT 190 10^3/uL (130-400); RED BLOOD COUNT 4.39 10^6/uL (4.35-5.85); RED CELL DISTRIBUTION WIDTH 11.3 % (10.0-14.5); WHITE BLOOD COUNT 3.9 10^3/uL (4.3-11.0)
--- NOTE | 2017-08-27 18:17 | ED General ---
General Chief Complaint: Cough/Cold/Flu Symptoms Stated Complaint: HEADACHE Nursing Triage Note: PT CO OF HEADACHE, HAS FEVER 101.0 AND BODY ACHES Nursing Sepsis Screen: No Definite Risk Source of Information: Patient, Family (son) Exam Limitations: No Limitations History of Present Illness Time Seen by Provider: 17:20 Initial Comments 42 yo female patient presents to the ED with c/o headache, bodyaches, fever 101.0 degrees F, and photophobia. Patient denies N/V/D, abdominal pain, rhinorrhea. She does report a h/o headaches 2-3 times per month, but denies migraines. mother had an aneurysm at age 25. Initially denied cough, but patient heard multiple times coughing during the exam. Timing/Duration: Other (onset yesterday.) Allergies and Home Medications Allergies Uncoded Allergies: ENVIRONMENTAL (Allergy, Unknown, 08/27/17) Home Medications Fluoxetine HCl 20 Mg Capsule, 20 MG PO, (Reported) Ondansetron 8 Mg Tab.rapdis, 8 MG PO Q6H PRN for NAUSEA/VOMITING-1ST LINE, #10 Ref 0 Prescribed by: FILIPE HURD on 08/27/172112 Constitutional: chills, No diaphoresis, No dizziness, fever, malaise EENTM: no symptoms reported, No vision loss Respiratory: cough, No phlegm, No short of breath, No stridor, No wheezing Cardiovascular: no symptoms reported Gastrointestinal: No abdominal pain, No constipation, No diarrhea, loss of appetite, No nausea, No vomiting Genitourinary: No decreased output, No dysuria, No frequency, No hematuria, No pain Musculoskeletal: see HPI, other (Generalized body aches) Skin: no symptoms reported Psychiatric/Neurological: Headache, Denies Numbness, Denies Paresthesia, Denies Seizure, Denies Tingling, Denies Weakness All Other Systems Reviewed Negative Unless Noted: Yes (Negative excepted noted.) Past Wxsoszz-Qnbfxt-Rcfmpe Hx Patient Social History Alcohol Use: Denies Use Recreational Drug Use: No Smoking Status: Never a Smoker Recent Foreign Travel: No Contact w/Someone Who Travel: No Recent Infectious Disease Expo: No Recent Hopitalizations: No Surgeries History of Surgeries: Yes Respiratory History of Respiratory Disorde: No Cardiovascular History of Cardiac Disorders: No Neurological History of Neurological Disord: Yes Neurological Disorders: Headaches /Migraines (headaches 2-3 times per month) Reproductive System : No Genitourinary History of Genitourinary Disor: No Gastrointestinal History of Gastrointestinal Di: No Musculoskeletal History of Musculoskeletal Dis: No Reviewed Nursing Assessment Reviewed/Agree w Nursing PMH: Yes Family Medical History Significant Family History: No Pertinent Family Hx Physical Exam-Suspected Sepsis Physical Exam Vital Signs Vital Sign - Last 12Hours 08/27/17 16:50 Temp 101.0 Pulse 104 Resp 20 B/P (MAP) 109/76 (87) Pulse Ox 97 Capillary Refill : Less Than 3 Seconds Blood Pressure Mean: 87 General Appearance: No Apparent Distress, WD/WN Eyes: Bilateral Eye Normal Inspection, Bilateral Eye PERRL, Bilateral Eye EOMI HEENT: PERRL/EOMI, TMs Normal, Normal ENT Inspection, Pharynx Normal Neck: Full Range of Motion, Supple, No Limited Range of Motion, Tender Lateral (Muscle tension posteriorly with tenderness. No nuchal rigidity noted.), No Tender Midline, Other (Positive anterior cervical lymphadenopathy noted.) Respiratory: Chest Non Tender, Lungs Clear, Normal Breath Sounds, No Accessory Muscle Use, No Respiratory Distress Cardiovascular: Regular Rate, Rhythm, No Edema, No Murmur, Normal Peripheral Pulses Gastrointestinal: Normal Bowel Sounds, No Organomegaly, Non Tender, Soft Back: Normal Inspection, No CVA Tenderness Extremity: Normal Capillary Refill, No Calf Tenderness, No Pedal Edema Neurologic/Psychiatric: Alert, Oriented x3, No Motor/Sensory Deficits, Normal Mood/Affect, cmm operator II-XII Norm as Tested, Other (Normal finger to nose. Negative Romberg test. No pronator drift noted.) Skin: normal color, warm/dry Focused Exam Evaluation Lactate Level Laboratory Tests 08/27/17 18:24: Lactic Acid Level 0.90 Lactic Acid Level Progress/Results/Core Measures Suspected Sepsis Recent Fever Within 48 Hours: No Infection Criteria Present: None New/Unexplained Altered Menta: No Sepsis Screen: No Definite Risk Sepsis Diagnosis: SIRS Temperature:101.0 Pulse: 104 Respiratory Rate: 20 Laboratory Tests 08/27/17 18:01: White Blood Count 3.9L Blood Pressure 109 /76 Mean: 87 Laboratory Tests 08/27/17 18:24: Lactic Acid Level 0.90 Laboratory Tests 08/27/17 18:01: Creatinine 0.81, INR Comment 1.0, Platelet Count 190, Total Bilirubin 0.2 Results/Orders Lab Results Laboratory Tests Test 08/27/17 18:01 08/27/17 18:24 08/27/17 19:50 Range/Units White Blood Count 3.9 L 4.3-11.0 10^3/uL Red Blood Count 4.39 4.35-5.85 10^6/uL Hemoglobin 14.2 11.5-16.0 G/DL Hematocrit 41 35-52 % Mean Corpuscular Volume 93 80-99 FL Mean Corpuscular Hemoglobin 32 25-34 PG Mean Corpuscular Hemoglobin Concent 35 32-36 G/DL Red Cell Distribution Width 11.3 10.0-14.5 % Platelet Count 190 130-400 10^3/uL Mean Platelet Volume 9.5 7.4-10.4 FL Neutrophils (%) (Auto) 65 42-75 % Lymphocytes (%) (Auto) 17 12-44 % Monocytes (%) (Auto) 17 H 0-12 % Eosinophils (%) (Auto) 1 0-10 % Basophils (%) (Auto) 0 0-10 % Neutrophils # (Auto) 2.5 1.8-7.8 X 10^3 Lymphocytes # (Auto) 0.7 L 1.0-4.0 X 10^3 Monocytes # (Auto) 0.7 0.0-1.0 X 10^3 Eosinophils # (Auto) 0.0 0.0-0.3 10^3/uL Basophils # (Auto) 0.0 0.0-0.1 10^3/uL Prothrombin Time 13.4 12.2-14.7 SEC INR Comment 1.0 0.8-1.4 Activated Partial Thromboplast Time 29 24-35 SEC Sodium Level 139 135-145 MMOL/L Potassium Level 4.0 3.6-5.0 MMOL/L Chloride Level 101 98-107 MMOL/L Carbon Dioxide Level 25 21-32 MMOL/L Anion Gap 13 5-14 MMOL/L Blood Urea Nitrogen 6 L 7-18 MG/DL Creatinine 0.81 0.60-1.30 MG/DL Estimat Glomerular Filtration Rate > 60 BUN/Creatinine Ratio 7 Glucose Level 94 70-105 MG/DL Calcium Level 9.1 8.5-10.1 MG/DL Total Bilirubin 0.2 0.1-1.0 MG/DL Aspartate Amino Transf (AST/SGOT) 20 5-34 U/L Alanine Aminotransferase (ALT/SGPT) 13 0-55 U/L Alkaline Phosphatase 60 40-136 U/L Total Protein 7.2 6.4-8.2 GM/DL Albumin 4.2 3.2-4.5 GM/DL Lactic Acid Level 0.90 0.50-2.00 MMOL/L Urine Color YELLOW Urine Clarity VERY CLOUDY H Urine pH 5 5-9 Urine Specific [place] 1.025 H 1.016-1.022 Urine Protein 1+ H NEGATIVE Urine Glucose (UA) NEGATIVE NEGATIVE Urine Ketones 1+ H NEGATIVE Urine Nitrite NEGATIVE NEGATIVE Urine Bilirubin NEGATIVE NEGATIVE Urine Urobilinogen NORMAL NORMAL MG/DL Urine Leukocyte Esterase NEGATIVE NEGATIVE Urine RBC (Auto) NEGATIVE NEGATIVE Urine RBC NONE /HPF Urine WBC NONE /HPF Urine Crystals PRESENT H /LPF Urine Amorphous Sediment LARGE PAM URATES H /LPF Urine Bacteria NONE /HPF Urine Casts NONE /LPF Urine Mucus NEGATIVE /LPF Urine Culture Indicated NO Micro Results Microbiology 08/27/17 Blood Culture - Preliminary, Resulted No growth 08/27/17 Blood Culture - Preliminary, Resulted No growth 08/27/17 Influenza Types A,B Antigen (RODRÍGUEZ) - Final, Complete My Orders Orders - FILIPE HURD Influenza A And B Antigens (08/27/17 17:00) Cbc With Automated Diff (08/27/17 17:48) Comprehensive Metabolic Panel (08/27/17 17:48) Lactic Acid Analyzer (08/27/17 17:48) Blood Culture (08/27/17 17:48) Ua Culture If Indicated (08/27/17 17:48) Protime With Inr (08/27/17 17:48) Partial Thromboplastin Time (08/27/17 17:48) Chest 1 View, Ap/Pa Only (08/27/17 17:48) Acetaminophen Tablet (Tylenol Tablet) (08/27/17 18:00) Saline Lock/Iv-Start (08/27/17 17:48) Ekg Tracing (08/27/17 17:48) Ns Iv 1000 Ml (Sodium Chloride 0.9%) (08/27/17 18:00) Vital Signs Adult Sepsis Patie Q1H (08/27/17 17:48) Ceftriaxone Injection (Rocephin Injectio (08/27/17 17:48) Ct Head Wo (08/27/17 17:48) Ketorolac Injection (Toradol Injection) (08/27/17 17:48) Rx-Oseltamivir Caps (Rx-Tamiflu Caps) (08/27/17 21:10) Rx-Ondansetron Po (Rx-Zofran Po) (08/27/17 21:10) Iv Push Event Marketing Assistant Ed (08/27/17 ) Medications Given in ED Vital Signs/I&O Capillary Refill : Less Than 3 Seconds Blood Pressure Mean: 87 Diagnostic Imaging Diagonstic Imaging: CT Plain Films/CT/US/NM/MRI: head Comments CT HEAD WO INDICATION: Severe headache x2 days. EXAM: Noncontrast brain CT is performed FINDINGS: There were no extra-axial fluid collections. No intracranial hemorrhage. No intracranial mass or mass effect. No midline shift. The ventricles are normal in size and position. There are no acute parenchymal abnormalities in the brain. There is no evidence of previous left-sided craniotomy with a small area of encephalomalacia in the left temporal lobe. We have no previous study for comparison. There is a small amount of fluid in the maxillary sinuses on both sides with diffuse opacification of the ethmoid air cells. IMPRESSION: No acute hemorrhage or mass effect or acute intracranial process. 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 We have no prior study for comparison. There is no acute intracranial finding. There is a small amount of fluid in the maxillary sinuses on both sides with diffuse opacification of the ethmoid air cells. Dictated by: Dictated on workstation # [id number] Reviewed: Reviewed by Me (Radiology report reviewed by me) Diagonstic Imaging: Xray Plain Films/CT/US/NM/MRI: chest Comments CHEST 1 VIEW, AP/PA ONLY INDICATION: Headaches. Cough. FINDINGS: There is no alveolar consolidation demonstrated. There is no effusion. There is no pneumothorax. Heart size appears normal. The pulmonary vascularity appears within normal limits. There is no acute osseous abnormality. IMPRESSION: 1. There is no radiographic evidence of an acute cardiopulmonary process. Dictated by: Dictated on workstation # [id number] Reviewed: Reviewed by Me (Radiology report reviewed by me) Departure Communication (Admissions) Progress Notes Patient seen and evaluated. Labs, CT head, and chest x-ray obtained. All laboratory and diagnostic findings discussed with the patient. Plan for discharge to home. Patient was given Rocephin, Toradol, Tylenol and IV fluids with improvement in symptoms. Patient's history and symptoms suspicious for influenza. Patient does work at [employer]. We'll plan for giving patient Tamiflu and having her follow-up with her primary care provider for recheck as an outpatient. Patient to return to the emergency department if symptoms worsen or for any other concerns. Impression Impression: Primary Impression: Influenza-like symptoms Additional Impressions: Acute headache Qualified Codes: G44.209 - Tension-type headache, unspecified, not intractable Volume depletion Disposition: HOME, SELF-CARE Condition: Improved Departure-Patient Inst. Decision time for Depature: 21:12 Referrals: DONNA DEJESUS DO (PCP/Family) Primary Care Physician Patient Instructions: Dehydration, Adult (DC), Flu, Adult (DC) Add. Discharge Instructions: All discharge instructions reviewed with patient and/or family. Voiced understanding. Medications as instructed. Tylenol Extra Strength over-the- counter as directed for pain or fever. Ibuprofen 600 mg by mouth every 6-8 hours as needed for pain or fever. Push fluids. Kybk-ibx-oufilre saline nasal spray, Afrin nasal spray, decongestants, antihistamines, and cough suppressants as needed for symptoms. Humidifier as needed. Follow-up with your primary care provider if no improvement in symptoms. Return to the emergency department for worsened symptoms or any other concerns. Scripts Ondansetron (Ondansetron Odt) 8 Mg Tab.rapdis 8 MG PO Q6H Y for NAUSEA/VOMITING-1ST LINE, #10 TAB 0 Refills Prov: FILIPE HURD 08/27/17 Work/School Note: Work Release Form Date Seen in the Emergency Department: Aug 27, 2017 Return to Work: Aug 29, 2017 Restrictions: Return-No Fever (24hrs) FILIPE HURD Aug 27, 2017 18:17
[2017-08-27 18:27] LABS: PROTHROMBIN TIME PATIENT 13.4 SEC (12.2-14.7)
[2017-08-27 18:35] LABS: ALANINE AMINOTRANSFERASE 13 U/L (0-55); ALBUMIN 4.2 GM/DL (3.2-4.5); ALKALINE PHOSPHATASE 60 U/L (40-136); BILIRUBIN,TOTAL 0.2 MG/DL (0.1-1.0); BUN/CREATININE RATIO 7; CALCIUM 9.1 MG/DL (8.5-10.1); CARBON DIOXIDE 25 MMOL/L (21-32); CHLORIDE 101 MMOL/L (98-107); CREATININE SERUM 0.81 MG/DL (0.60-1.30); GFR ESTIMATED > 60; GLUCOSE 94 MG/DL (70-105); SODIUM 139 MMOL/L (135-145); TOTAL PROTEIN 7.2 GM/DL (6.4-8.2)
--- NOTE | 2017-08-27 18:55 | Diagnostic Imaging Report ---
INDICATION: Severe headache x2 days. EXAM: Noncontrast brain CT is performed FINDINGS: There were no extra-axial fluid collections. No intracranial hemorrhage. No intracranial mass or mass effect. No midline shift. The ventricles are normal in size and position. There are no acute parenchymal abnormalities in the brain. There is no evidence of previous left-sided craniotomy with a small area of encephalomalacia in the left temporal lobe. We have no previous study for comparison. There is a small amount of fluid in the maxillary sinuses on both sides with diffuse opacification of the ethmoid air cells. IMPRESSION: No acute hemorrhage or mass effect or acute intracranial process. 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 We have no prior study for comparison. There is no acute intracranial finding. There is a small amount of fluid in the maxillary sinuses on both sides with diffuse opacification of the ethmoid air cells. Dictated by: Dictated on workstation # [id number]
--- NOTE | 2017-08-27 18:55 | Diagnostic Imaging Report ---
INDICATION: Headaches. Cough. FINDINGS: There is no alveolar consolidation demonstrated. There is no effusion. There is no pneumothorax. Heart size appears normal. The pulmonary vascularity appears within normal limits. There is no acute osseous abnormality. IMPRESSION: 1. There is no radiographic evidence of an acute cardiopulmonary process. Dictated by: Dictated on workstation # [id number]
[2017-08-27 20:26] LABS: BILIRUBIN,URINE NEGATIVE (NEGATIVE); CLARITY,URINE VERY CLOUDY; COLOR,URINE YELLOW; GLUCOSE, URINE (UA) NEGATIVE (NEGATIVE); KETONES,URINE 1+ (NEGATIVE); LEUKOCYTE ESTERASE ,URINE NEGATIVE (NEGATIVE); NITRITE,URINE NEGATIVE (NEGATIVE); PH,URINE 5 (5-9); PROTEIN,URINE 1+ (NEGATIVE); UROBILINOGEN,URINE NORMAL (NORMAL)
[2017-08-27 20:27] LABS: AMORPHOUS SEDIMENT,UR LARGE AMOR URATES /LPF
[2017-08-27] MEDS ORDERED: RX-OSELTAMIVIR 75 MG (TAMIFLU) BOX OF 10 PO STA (21:10)
[2017-08-27] MEDS ORDERED: RX-ONDANSETRON 4 MG ODT (ZOFRAN) PPK #4 PO STA (21:10)
[2017-08-27] MEDS ORDERED: ONDA8TAB13 PO (21:13)
[2017-08-27 21:25] VITALS: BP 112/82
== END 2017-08-27 21:25 | disposition home or self-care (01) ==
LOC: EDUNIT# 16:12 → ER 16:14
DX: J11.1 Influenza due to unidentified influenza virus with other respiratory manifestations (principal); R51 Headache; E86.9 Volume depletion, unspecified
CPT/HCPCS: 36415; 70450; 71045; 80053; 81000; 83605; 85025; 85610; 85730; 87040; 87804; 93005; 96374; 96375

== ENCOUNTER 2018-01-04 02:14 | Emergency (ER) | payer OTHER, MEDICAID ==
[~2018-01-04] VITALS: Ht 165.1 cm; Wt 49.9 kg
[~2018-01-04 02:14] MED LIST: FLUO20CA42 PO; ONDA8TAB13 PO
[2018-01-04] MEDS ORDERED: FLUO40CA (02:28)
--- NOTE | 2018-01-04 02:44 | ED Lower Extremity ---
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 She has no previous injury to this knee. She's having a little trouble putting any weight on the knee for the first couple minutes and now she cannot put full weight on her knee. She did not fall, torque her knee or have any deformity to the knee. There is no swelling but she did ice the knee. She has not taken any Tylenol or Motrin. She was however able to walk in on her knee albeit painfully. Allergies and Home Medications Allergies Uncoded Allergies: ENVIRONMENTAL (Allergy, Unknown, 08/27/17) Patient Home Medication List Home Medication List Reviewed: Yes Constitutional: No chills, No diaphoresis, No fever, No malaise EENTM: No hearing loss, No ear pain Respiratory: No cough, No short of breath Cardiovascular: No chest pain, No edema Gastrointestinal: No abdominal pain, No constipation, No diarrhea Genitourinary: No discharge, No dysuria Musculoskeletal: No back pain; joint pain (right knee) Past Lzfhyew-Rkahgn-Mwhowp Hx Patient Social History Alcohol Use: Denies Use Recreational Drug Use: No Smoking Status: Never a Smoker 2nd Hand Smoke Exposure: No Recent Foreign Travel: No Contact w/Someone Who Travel: No Recent Infectious Disease Expo: No Recent Hopitalizations: No Immunizations Up To Date Tetanus Booster (TDap): Unknown Seasonal Allergies Seasonal Allergies: No Past Medical History Surgeries: Yes Orthopedic Respiratory: No Cardiac: No Neurological: Yes Headaches /Migraines : No Last Menstrual Period: December 21, 2017 Genitourinary: No Gastrointestinal: No Musculoskeletal: No Endocrine: No HEENT: No Cancer: No Psychosocial: Yes Anxiety, Depression Integumentary: No Blood Disorders: No Family Medical History No Pertinent Family Hx Physical Exam Vital Signs Vital Signs - First Documented 01/04/18 02:20 Temp 97.8 Pulse 87 Resp 18 B/P (MAP) 109/76 (87) Pulse Ox 98 O2 Delivery Room Air Capillary Refill : Less Than 3 Seconds General Appearance: no apparent distress, thin HEENT: PERRL/EOMI, pharynx normal Cardiovascular: normal peripheral pulses, regular rate, rhythm, no edema Respiratory: no respiratory distress, no accessory muscle use Hips: bilateral hip non-tender, bilateral hip normal inspection, bilateral hip normal range of motion, bilateral hip no evidence of injury Legs: bilateral leg non-tender, bilateral leg normal inspection, bilateral leg normal range of motion, bilateral leg no evidence of injury Knees: left knee non-tender; bilateral knee normal inspection, bilateral knee normal range of motion; left knee no evidence of injury; right knee pain, right knee soft tissue tenderness (anterior tibial plateau medially and laterally), right knee other (no swelling, ecchymosis, bony tenderness. Difficult to get a complete examination secondary to the patient's discomfort. Anterior posterior drawer test normal. Tenderness to the MCL and LCL on stretch but no laxity.) Ankles: bilateral ankle non-tender, bilateral ankle normal inspection, bilateral ankle normal range of motion, bilateral ankle no evidence of injury Neurologic/Tendon: normal sensation, normal motor functions, normal tendon functions, responds to pain, no evidence tendon injury Neurologic/Psychiatric: alert, oriented x 3 Skin: normal color, warm/dry Progress/Results/Core Measures Results/Orders Vital Signs/I&O 01/04/18 02:20 Temp 97.8 Pulse 87 Resp 18 B/P (MAP) 109/76 (87) Pulse Ox 98 O2 Delivery Room Air Blood Pressure Mean: 87 Progress Progress Note : Time: 02:43 Progress Note Minor trauma to the right knee. Soft tissue injury. Possible strain/sprain versus meniscal bruising. She also has tenderness over the inferior patellar ligament. Would start with rice therapy, follow-up with occupational medicine or primary care in 1 week for reexamination of her knee if symptoms are not improving. Plain films are not indicated. [place] knee rules she relates none of the criteria. Departure Impression Primary Impression: Knee pain Qualified Codes: M25.561 - Pain in right knee Disposition: 01 HOME, SELF-CARE Condition: Stable Departure-Patient Inst. Decision time for Depature: 02:45 Referrals: DONNA DEJESUS DO (PCP/Family) Primary Care Physician Patient Instructions: Knee Sprain (DC) Add. Discharge Instructions: Apply ice for 20 minutes to your right knee every 4 hours for the first 3 days. After that you can use heating pads. You can also be using Tylenol 1000 mg every 8 hours and ibuprofen 800 mg every 8 hours. For the next 7 days he should not push or pull anything heavier than 40 pounds. Do not lift heavier than 20 pounds with your knees. Rest your knee when possible and elevated above the level of your heart. Wear a compression bandage such as a neoprene knee sleeve or Jaspal bandage for the next 1-2 weeks. Follow-up with primary care or occupational medicine in 7-10 days if you're still having pain to have the knee reevaluated and discuss possible referral to physical therapy or soft tissue imaging. All discharge instructions reviewed with patient and/or family. Voiced understanding. Work/School Note: Work Release Form Date Seen in the Emergency Department: January 04, 2018 Return to Work: January 05, 2018 Restrictions: Follow Up With [facility] Other Restrictions Listed Below: No pushing more than 40 pounds or lifting more than 20 pounds x1week Copy Copies To 1: DONNA DEJESUS TITUS J January 04, 2018 02:44
[2018-01-04 03:05] VITALS: BP 109/76
== END 2018-01-04 03:05 | disposition home or self-care (01) ==
LOC: EDUNIT# 02:14 → ER 02:18
DX: M25.561 Pain in right knee (principal); G43.909 Migraine, unspecified, not intractable, without status migrainosus; F41.9 Anxiety disorder, unspecified; F32.9 Major depressive disorder, single episode, unspecified; X50.0XXA Overexertion from strenuous movement or load, initial encounter
CPT/HCPCS: 99283

== ENCOUNTER 2019-10-06 03:23 | Emergency (ER) | payer MEDICAID, OTHER ==
[~2019-10-06] VITALS: Ht 163 cm; Wt 58.6 kg
[~2019-10-06 03:23] MED LIST changes: +FLUO40CA
--- NOTE | 2019-10-06 03:43 | ED Upper Extremity ---
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 She does not rely subjective tetanus shot. She does take fluoxetine but no other medications. She is not having any numbness, paresthesias or immobility in her fingers or hand. No previous significant injury to her hand. Allergies and Home Medications Allergies Uncoded Allergies: ENVIRONMENTAL (Allergy, Unknown, 08/27/17) Patient Home Medication List Home Medication List Reviewed: Yes Review of Systems Constitutional: No chills, No diaphoresis EENTM: No ear discharge, No ear pain Respiratory: No cough, No short of breath Cardiovascular: No chest pain, No edema Gastrointestinal: No abdominal pain, No nausea, No vomiting Genitourinary: No discharge, No dysuria Musculoskeletal: No back pain, No joint pain Skin: see HPI Past [place]-Trkhjs-Dxtkjf Hx Patient Social History Alcohol Use: Denies Use Recreational Drug Use: No Smoking Status: Never a Smoker 2nd Hand Smoke Exposure: No Recent Foreign Travel: No Contact w/Someone Who Travel: No Recent Hopitalizations: No Immunizations Up To Date Tetanus Booster (TDap): Unknown Seasonal Allergies Seasonal Allergies: No Past Medical History Surgeries: Yes Orthopedic Respiratory: No Cardiac: No Neurological: Yes Headaches /Migraines Genitourinary: No Gastrointestinal: No Musculoskeletal: No Endocrine: No HEENT: No Cancer: No Psychosocial: Yes Anxiety, Depression Integumentary: No Blood Disorders: No Family Medical History No Pertinent Family Hx Physical Exam Vital Signs Capillary Refill : Height, Weight, BMI Height: 5'5.00" Weight: 110lbs. oz. 49.542230ad; BMI Method:Stated General Appearance: WD/WN, no apparent distress HEENT: PERRL/EOMI, pharynx normal Cardiovascular: normal peripheral pulses, regular rate, rhythm, no edema Respiratory: no respiratory distress, no accessory muscle use Wrist: Yes normal inspection, Yes non-tender, Yes no evidence of injury, Yes normal ROM Hand: Left, laceration (laceration of the base of the ulnar side of the left hand with a 1.5- 2 cm flap and distal a 2 cm linear laceration to the subcutaneous.) Procedures/Interventions Wound Location: Upper Extremities Other Wound Location Proximal left hand on her side dorsally Wound Length (cm): 3 Wound's Depth, Shape: flap, sub Q Wound Explored: clean Betadine Prep?: Yes (chlorhexidine and sterile saline) Anesthesia: 1% Lidocaine Volume Anesthetic (ccs): 3 Wound Debrided: minimal Suture: Prolene Suture Size: 5-0 Number of Sutures: 4 Wound Location: Upper Extremities Other Wound Location Discussed the left hand ulnar side dorsum Wound's Depth, Shape: flap Wound Explored: clean Betadine Prep?: Yes Anesthesia: 1% Lidocaine Volume Anesthetic (ccs): 3 Wound Debrided: minimal Suture: Prolene Suture Size: 5-0 Number of Sutures: 4 Progress/Results/Core Measures Results/Orders My Orders Orders - ALEXANDER GOTTLIEB Lidocaine 1% Inj 20 Ml (Xylocaine 1% Inj (10/06/19 03:45) Dipht,Pertuss(Acell),Tet Adult (Boostrix (10/06/19 03:45) Progress Progress Note : Time: 04:10 Progress Note 2 flaps were reapproximated and sutured down. Wound is hemostatic. Nursing will apply Vaseline and gauze dressing. Instructions of been given. Tetanus vaccination was updated. Departure Impression Primary Impression: Laceration of hand without complication, excluding fingers Qualified Codes: S61.412A - Laceration without foreign body of left hand, initial encounter Disposition: 01 HOME, SELF-CARE Condition: Improved Departure-Patient Inst. Decision time for Depature: 04:15 Referrals: DONNA DEJESUS DO (PCP/Family) Primary Care Physician Patient Instructions: Laceration Repair With Stitches (DC), Diphtheria and Tetanus Toxoids Add. Discharge Instructions: Keep the wound clean with regular soap and water only. Do not submerse the hand but it's okay to shower or wash your hands. Use a thin dollop of Vaseline over the sutures and then place a clean dry gauze dressing over that and change it daily or as often as it becomes soiled. Return to the ER if you wish to have the sutures out in about 10-14 days. Alternatively you can go to your doctor. Amoxicillin twice a day to prevent infection for 5 days. If your hand becomes swollen or has pain in the elevated above the level of your heart. If you have bleeding apply direct pressure for at least 20 minutes. If this does not stop it you may bring it back to the ER. If you have increased redness, swelling and pain or fever then you should return to a doctor the same day. All discharge instructions reviewed with patient and/or family. Voiced understanding. Scripts Amoxicillin (Amoxicillin) 500 Mg Capsule 500 MG PO BID for 5 Days, #10 CAP 0 Refills Prov: ALEXANDER GOTTLIEB 10/06/19 Work/School Note: Work Release Form Date Seen in the Emergency Department: Oct 06, 2019 Return to Work: Oct 06, 2019 Restrictions: Need Release from Doctor Other Restrictions Listed Below: Light duty with the left hand and no submersion of left hand until 10/16/19. ALEXANDER GOTTLIEB Oct 06, 2019 03:42
[2019-10-06] MEDS ORDERED: TETANUS,DIPTH,PERTUSS P/F (BOOSTRIX) 0.5 ML VIAL IM ONE (03:45)
[2019-10-06] MEDS ORDERED: LIDOCAINE 1% INJ 20 ML 20 ML VIAL INJ ONE (03:45)
--- NOTE | 2019-10-06 04:10 | NUR ---
8 sutures placed by erp.
[2019-10-06] MEDS ORDERED: AMOX500C2 PO (04:21)
[2019-10-06 04:26] VITALS: BP 112/77
== END 2019-10-06 04:29 | disposition home or self-care (01) ==
LOC: EDUNIT# 03:23 → ER 03:25
DX: S61.412A Laceration without foreign body of left hand, initial encounter (principal); Z23 Encounter for immunization; W26.8XXA Contact with other sharp object(s), not elsewhere classified, initial encounter; Y92.59 Other trade areas as the place of occurrence of the external cause
CPT/HCPCS: 12002; 90471; 90715

== ENCOUNTER 2019-10-15 03:54 | Emergency (ER) | payer OTHER ==
[~2019-10-15] VITALS: Ht 167 cm; Wt 72.0 kg
[~2019-10-15 03:54] MED LIST changes: +AMOX500C2 PO
[2019-10-15 04:08] VITALS: BP 134/82
== END 2019-10-15 04:09 | disposition home or self-care (01) ==
LOC: EDUNIT# 03:54 → ER 03:56
DX: S61.412D Laceration without foreign body of left hand, subsequent encounter (principal); X58.XXXD Exposure to other specified factors, subsequent encounter

== ENCOUNTER 2021-07-14 23:45 | Emergency (ER) | payer OTHER ==
[~2021-07-14] VITALS: Ht 165 cm; Wt 56.7 kg
--- OUTSIDE RECORDS SUMMARY | 2021-07-14 23:52 | XMS REPORT | Clinical Summary ---
Author Author [facility] Organization [facility] Address Unknown Phone Unavailable Care Team Providers Care Lap Grinder Name Role Phone PCP Unavailable Source Comments [facility] ([facility] Delivery) documents [facility] appear [facility] Allergies Not on File Medications Please verify current medications with patient. Not on file Active Problems Not on file Social History Date Tobacco Use Types Packs/Day Years Used Never Assessed Sex Assigned at Date Recorded Not on file Last Filed Vital Signs Not on file Plan of Treatment Health Maintenance Due Date Last Done Comments Cervical Cancer Screening 1975 HPV/Cotest 1975 Pap Smear 1975 COVID-19 Vaccine (1) 1987 Influenza Vaccine (#1) 2021 HPV Vaccine Aged Out No longer eligible based on patient's age to complete this topic Hepatitis A Vaccine Aged Out No longer eligible based on patient's age to complete this topic Hepatitis B Vaccine Aged Out No longer eligible based on patient's age to complete this topic Hib Vaccine Aged Out No longer eligible based on patient's age to complete this topic IPV Vaccine Aged Out No longer eligible based on patient's age to complete this topic Meningococcal Vaccine Aged Out No longer eligib le based on patient's age to (MCV4) complete this topic Pneumococcal Vaccine: Aged Out No longer eligib le based on patient's age to Pediatrics (0 to 5 Years) complete this topic and At-Risk Patients (6 to 64 Years) Rotavirus Vaccine Aged Out No longer eligible based on patient's age to complete this topic Results Not on filefrom Last 3 Months
[2021-07-15] VITALS: BP 121/89
[2021-07-15] MEDS ORDERED: NAPR500T8 PO (00:35)
[2021-07-15] MEDS ORDERED: CYCL10TA25 PO (00:35)
--- NOTE | 2021-07-15 00:37 | ED Back Pain ---
General Chief Complaint: Back Problems Stated Complaint: WC-TWISTED BACK Nursing Triage Note: c/o lower back pain after twisting while carrying a box at work approx. 1900. Allergies and Home Medications Allergies Uncoded Allergies: ENVIRONMENTAL (Allergy, Unknown, 08/27/17) Patient Home Medication List No Active Prescriptions or Reported Meds Past Mufkxko-Esdyvr-Oebnjm Hx Patient Social History Tobacco Use?: No Substance use?: No Alcohol Use?: Yes Alcohol Frequency: Once in a while Pt feels they are or have been: No Immunizations Up To Date Tetanus Booster (TDap): Unknown Seasonal Allergies Seasonal Allergies: No Past Medical History Surgery/Hospitalization HX: brain, back, abdominal surgery Surgeries: Yes Orthopedic Respiratory: No Cardiac: No Neurological: Yes Headaches /Migraines Last Menstrual Period: Jun 26, 2021 Genitourinary: No Gastrointestinal: No Musculoskeletal: No Endocrine: No HEENT: No Cancer: No Psychosocial: Yes Anxiety, Depression Integumentary: No Blood Disorders: No Family Medical History No Pertinent Family Hx Physical Exam Vital Signs Vital Signs - First Documented 07/15/21 00:00 Temp 36.6 Pulse 93 Resp 16 B/P (MAP) 121/89 (100) Pulse Ox 100 O2 Delivery Room Air Capillary Refill : Less Than 3 Seconds Height, Weight, BMI Height: 5'5.00" Weight: 110lbs. oz. 49.758182jo; 20.00 BMI Method:Stated Procedures/Interventions Suture Size: 5-0 Progress/Results/Core Measures Results/Orders Vital Signs/I&O 07/15/21 00:00 Temp 36.6 Pulse 93 Resp 16 B/P (MAP) 121/89 (100) Pulse Ox 100 O2 Delivery Room Air Blood Pressure Mean: 100 Departure Impression Primary Impression: Low back strain Disposition: 01 HOME, SELF-CARE Condition: Stable Departure-Patient Inst. Decision time for Depature: 00:33 Referrals: DONNA DEJESUS DO (PCP/Family) Primary Care Physician Patient Instructions: Low Back Pain (DC), Back Muscle Strain Add. Discharge Instructions: ALTERNATE ICE AND HEAT TO SORE AREAS AT 20 MINUTE INTERVALS NO LIFTING OVER 5 LBS, NO TWISTING OR BENDING AT WAIST FOLLOW UP WITH OCCUPATIONAL HEALTH ON SATURDAY --CALL FIRST THING SATURDAY MORNING TO SCHEDULE APPOINTMENT. [phone] All discharge instructions reviewed with patient and/or family. Voiced understanding. Scripts Cyclobenzaprine HCl (Cyclobenzaprine HCl) 10 Mg Tablet 10 MG PO Q8H PRN for SPASMS, #15 TAB 0 Refills Prov: REBECA CHAVES DO 07/15/21 Naproxen (Naproxen) 500 Mg Tablet.dr 500 MG PO BID, #20 TAB Prov: REBECA CHAVES DO 07/15/21 REBECA CHAVES DO Jul 15, 2021 00:37
[2021-07-15] MEDS ORDERED: RX-CYCLOBENZAPRINE 10 MG (FLEXERIL) TAB PPK#3 PO STA (00:38)
[2021-07-15] MEDS ORDERED: RX-NAPROXEN (NAPROSYN) 250 MG TAB PPK#4 PO STA (00:38)
== END 2021-07-15 00:46 | disposition home or self-care (01) ==
LOC: EDUNIT# 23:45 → ER 23:49
DX: S39.012A Strain of muscle, fascia and tendon of lower back, initial encounter (principal); X50.1XXA Overexertion from prolonged static or awkward postures, initial encounter
CPT/HCPCS: 99281